=== PATIENT | female | born 1995 | race Caucasian/White ===

== ENCOUNTER → 2016-11-29 | Outpatient (CLI) | payer OTHER ==
[~2016-11-29] MED LIST: DEXTSYP41 PO; MTR600X PO; OXYC5TAB PO; PRENTAB26 PO
== END | disposition home or self-care (01) ==
LOC: C.PAPS 10:42
PROVIDERS: ATTEND Obstetrics & Gynecology
DX: Z12.4 Encounter for screening for malignant neoplasm of cervix (principal)

== ENCOUNTER → 2017-09-22 | Outpatient (CLI) | payer OTHER ==
[~2017-09-22] MED LIST changes: +MELATAB2 PO
== END | disposition home or self-care (01) ==
LOC: C.LAB1850 16:22
PROVIDERS: ATTEND Obstetrics & Gynecology
DX: Z32.00 Encounter for pregnancy test, result unknown (principal)

== ENCOUNTER 2017-10-01 17:37 | Emergency (ER) | payer OTHER ==
[~2017-10-01] VITALS: Ht 167.6 cm; Wt 60.3 kg
[~2017-10-01 17:37] MED LIST changes: -MELATAB2 PO
[2017-10-01 17:43] VITALS: TEMP 36.7; Ht 167.6 cm; Wt 60.3 kg
[2017-10-01] MEDS ORDERED: DiphenhydrAMINE HCL 50 MG/ML VIAL IV STA (18:00)
[2017-10-01] MEDS ORDERED: SODIUM CHLORIDE 0.9% 500ML 500 ML IV STA (18:00)
[2017-10-01] MEDS ORDERED: ACETAMINOPHEN 325 MG TAB PO STA (18:00)
[2017-10-01] MEDS ORDERED: MELATAB2 PO (18:13)
--- NOTE | 2017-10-01 18:35 | EMERGENCY ROOM VISIT NOTE ---
History Report prepared by Julissaibarin: Kamla Farfan Under the Supervision of: Dr. eSven Contreras M.D. First contact with patient: 17:47 Chief Complaint: HEADACHE Stated Complaint: SWEATY,HEADACHE,RINGING EARS,PORENIAL MISCARRIAGE History of Present Illness The patient is a 22 year old white female with history of a breech who presents to the ED with a cc of a constant headache beginning this evening. She notes the headache is around her forehead, and is improving since its onset. She reports she is 4 or 5 weeks , and her LNMP was August 05. The patient states she noticed a "long string of pink-sonya mucous" in the toilet after using the restroom this evening, and is afraid she may be having a miscarriage. She notes she looked up what this could mean and began to experience dizziness, racing pulse, sweating, and ringing ears. She denies vaginal bleeding, recent falls, or a history of migraines or panic attacks. The patient notes her first OB appointment is scheduled for 3 days from today. Source of History: patient Onset: this evening Position: head Quality: other (headache) Timing: constant, other (improving) Associated Symptoms: + diaphoresis Note: associated symptoms: dizziness, racing pulse, ringing ears Review of Systems See HPI for pertinent positives and negatives. A total of ten systems were reviewed and were otherwise negative. Past Medical & Surgical Medical Problems: (1) Breech (2) Breech presentation Family History No pertinent family history stated. Social History Smoking Status: Never Smoker Housing Status: lives with family Current/Historical Medications Scheduled Multivit/Min/Iron/Fol Ac/Pren ( Vitamin), 1 TAB PO QPM Scheduled PRN Melatonin (Melatonin Maximum Strengt), 1 TAB PO HS PRN for Sleep Allergies Coded Allergies: Sulfa Antibiotics (Verified Allergy, Unknown, RASH, 10/01/17) Physical Exam Vital Signs Date Time Temp Pulse Resp B/P (MAP) Pulse Ox O2 Delivery O2 Flow Rate FiO2 10/01/17 19:43 10/01/17 19:15 67 16 94/44 100 Room Air 10/01/17 17:43 36.7 59 20 107/70 100 Room Air Physical Exam GENERAL: Awake, alert, well-appearing, NAD HENT: Normocephalic, atraumatic. EYES: Normal conjunctiva. Sclera non-icteric. PERRL. No anisocoria. NECK: Supple. No nuchal rigidity. FROM. RESPIRATORY: CTAB, no rhonchi, wheezing, crackles CARDIAC: RRR, no MRG ABDOMEN: Soft, NTND, BS+ MSK: No chest wall TTP, no LE edema NEURO: CN 2-12 intact, 5/5 upper and lower extremity strength, no dysmetria, no drift, good finger to nose, no sensory deficits. Finger count grossly normal. SKIN: No rash or jaundice noted. Medical Decision & Procedures Laboratory Results 10/01/17 18:26 Red Blood Count 4.15, Mean Corpuscular Volume 93.3, Mean Corpuscular Hemoglobin 31.3, Mean Corpuscular Hemoglobin Concent 33.6, Mean Platelet Volume 9.8, Neutrophils (%) (Auto) 55.7, Lymphocytes (%) (Auto) 38.7, Monocytes (%) (Auto) 4.1, Eosinophils (%) (Auto) 1.1, Basophils (%) (Auto) 0.3, Neutrophils # (Auto) 4.18, Lymphocytes # (Auto) 2.90, Monocytes # (Auto) 0.31, Eosinophils # (Auto) 0.08, Basophils # (Auto) 0.02 10/01/17 18:26 Test 10/01/17 18:26 White Blood Count 7.50 K/uL (4.8-10.8) Red Blood Count 4.15 M/uL (4.2-5.4) Hemoglobin 13.0 g/dL (12.0-16.0) Hematocrit 38.7 % (37-47) Mean Corpuscular Volume 93.3 fL (80-100) Mean Corpuscular Hemoglobin 31.3 pg (25-34) Mean Corpuscular Hemoglobin Concent 33.6 g/dl (32-36) Platelet Count 183 K/uL (130-400) Mean Platelet Volume 9.8 fL (7.4-10.4) Neutrophils (%) (Auto) 55.7 % Lymphocytes (%) (Auto) 38.7 % Monocytes (%) (Auto) 4.1 % Eosinophils (%) (Auto) 1.1 % Basophils (%) (Auto) 0.3 % Neutrophils # (Auto) 4.18 K/uL (1.4-6.5) Lymphocytes # (Auto) 2.90 K/uL (1.2-3.4) Monocytes # (Auto) 0.31 K/uL (0.11-0.59) Eosinophils # (Auto) 0.08 K/uL (0-0.5) Basophils # (Auto) 0.02 K/uL (0-0.2) RDW Standard Deviation 41.8 fL (36.4-46.3) RDW Coefficient of Variation 12.4 % (11.5-14.5) Immature Granulocyte % (Auto) 0.1 % Immature Granulocyte # (Auto) 0.01 K/uL (0.00-0.02) Urine Color YELLOW Urine Appearance CLEAR (CLEAR) Urine pH 6.5 (4.5-7.5) Urine Specific [place] 1.026 (1.000-1.030) Urine Protein NEG (NEG) Urine Glucose (UA) NEG (NEG) Urine Ketones NEG (NEG) Urine Occult Blood NEG (NEG) Urine Nitrite NEG (NEG) Urine Bilirubin NEG (NEG) Urine Urobilinogen NEG (NEG) Urine Leukocyte Esterase NEG (NEG) Anion Gap 5.0 mmol/L (3-11) Est Creatinine Clear Calc Drug Dose 100.2 ml/min Estimated GFR () 117.8 Estimated GFR (Non- 101.7 BUN/Creatinine Ratio 17.5 (10-20) Calcium Level 8.4 mg/dl (8.5-10.1) Total Bilirubin 0.2 mg/dl (0.2-1) Direct Bilirubin < 0.1 mg/dl (0-0.2) Aspartate Amino Transf (AST/SGOT) 22 U/L (15-37) Alanine Aminotransferase (ALT/SGPT) 30 U/L (12-78) Alkaline Phosphatase 59 U/L (45-117) Total Protein 7.6 gm/dl (6.4-8.2) Albumin 4.2 gm/dl (3.4-5.0) Lipase 155 U/L (73-393) Human Chorionic Gonadotropin, Quant 5507 mIU/mL Laboratory results reviewed by me Medications Administered Medications (Trade) Dose Ordered Sig/Sabrina Route Start Time Stop Time Status Last Admin Dose Admin Sodium Chloride 500 ml @ 999 mls/hr Q31M STAT IV 10/01/17 18:00 10/01/17 18:30 DC 10/01/17 18:00 999 MLS/HR Diphenhydramine HCl (Benadryl Inj) 25 mg NOW STAT IV 10/01/17 18:00 10/01/17 18:01 DC 10/01/17 18:31 25 MG Acetaminophen (Tylenol Tab) 650 mg NOW STAT PO 10/01/17 18:00 10/01/17 18:01 DC 10/01/17 18:32 650 MG ED Course 1751: The patient was evaluated in room B3. A complete history and physical exam was performed. Medical Decision Nursing notes reviewed. Ancillary studies and prior records reviewed. The patient is a 22 year old white female with history of a breech who presents to the ED with a cc of a constant headache beginning this evening. Etiologies such as migraine headache, meningitis, sinusitis, CO exposure, ICH, SAH, infection, tumor, headache, sinus thrombosis, arterial dissection, as well as others were entertained. Patient was seen and evaluated the bedside. Patient did complain of noticing some mucousy discharge in suddenly became almost panic that she became lightheaded and nauseated and did develop a headache. Patient otherwise has a nonfocal neurologic exam and is afebrile. This is the patient's second . Patient's last menstrual period was August 05. The patient has not had any other blood work or ultrasounds completed. The patient denies any vaginal bleeding at this time. Patient has had some nausea but again no abdominal pain or cramping. Patient does not believe there is been any passage of tissue but she is unsure if she noticed a mucousy discharge. Patient did have blood work completed and was treated for headache. Patient had very reassuring blood work. The patient did have improvement of her headache. The patient's beta hCG was 5000. I do not believe that she requires a pelvic exam at this time she denies any vaginal bleeding. The patient was told to call her [facility] if she has any worsening or persistent symptoms and can also return to the emergency department. Patient was told what her beta-hCG was. Patient is supposed to get blood work on Tuesday. Patient was told that she should notice an increase in this beta-hCG and if it is either fairly close or plateaued or decreased she needs to return or call her [facility]. Patient was given strict follow-up, discharge, and return precautions. All questions were answered. Patient was deemed suitable for outpatient follow-up at this time. Patient agreed with the plan of care and was safely discharged home. Medication Reconcilliation Current Medication List: was personally reviewed by me Blood Pressure Screening Patient's blood pressure: Normal blood pressure Blood pressure disposition: Did not require urgent referral Impression Primary Impression: Headache Additional Impressions: Hypocalcemia Scribe Attestation The scribe's documentation has been prepared under my direction and personally reviewed by me in its entirety. I confirm that the note above accurately reflects all work, treatment, procedures, and medical decision making performed by me. Departure Information Dispostion Home / Self-Care Referrals Joycelyn Fleming M.D. (PCP) Forms HOME CARE DOCUMENTATION FORM, IMPORTANT VISIT INFORMATION Patient Instructions Headache Pain, [facility] Additional Instructions Please return to the emergency department if you have worsening or recurrent symptoms not amenable to at-home treatment. Please call for a follow-up appointment with her primary care physician. Please take your medications as prescribed. If you have other concerns and/or complaints please feel free to also call your primary care physician's office or return the ED for further evaluation, management, and treatment. You may take tylenol 650 mg every 6 hours as needed for pain/fever unless told by your physician to not take it or have liver problems. Take your medications as prescribed. Please keep your follow-up appointment with your [facility] as well as her lab work. Your beta hCG quantitative level was just greater than 5000. You have been examined and treated today on an emergency basis only. This is not a substitute for, or an effort to provide, complete comprehensive medical care. It is impossible to recognize and treat all injuries or illnesses in a single emergency department visit. It is therefore important that you follow up closely with [facility], your PCP, and/or your specialist(s). Call as soon as possible for an appointment. Thank you for your time and consideration. I look forward to speaking with you again soon. Please don't hesitate to call us if you have any questions. Problem Qualifiers Primary Impression: Headache Headache type: unspecified Headache chronicity pattern: acute headache Intractability: not intractable Qualified Codes: R51 - Headache Additional Impressions: Weeks of gestation: 8 weeks Qualified Codes: Z3A.08 - 8 weeks gestation of
[2017-10-01 18:39] LABS: BASO % 0.3 %; BASO ABS # 0.02 K/uL (0-0.2); EOS % 1.1 %; EOS ABS # 0.08 K/uL (0-0.5); HEMATOCRIT 38.7 % (37-47); IG# 0.01 K/uL (0.00-0.02); LYMPH % 38.7 %; MEAN CELL VOLUME 93.3 fL (80-100); MEAN CORPUSCULAR HEMOGLOBIN 31.3 pg (25-34); MEAN CORPUSCULAR HGB CONC 33.6 g/dl (32-36); MEAN PLATELET VOLUME 9.8 fL (7.4-10.4); MONO % 4.1 %; MONO ABS # 0.31 K/uL (0.11-0.59); NEUT % 55.7 %; NEUT ABS # 4.18 K/uL (1.4-6.5); PLATELET COUNT 183 K/uL (130-400); RED CELL DISTRIBUTION WIDTH CV 12.4 % (11.5-14.5); RED CELL DISTRIBUTION WIDTH SD 41.8 fL (36.4-46.3)
[2017-10-01 19:02] LABS: ALBUMIN 4.2 gm/dl (3.4-5.0); ALKALINE PHOSPHATASE 59 U/L (45-117); ALT/SGPT 30 U/L (12-78); AST/SGOT 22 U/L (15-37); BLOOD UREA NITROGEN 14 mg/dl (7-18); CALCIUM 8.4 mg/dl (8.5-10.1); CARBON DIOXIDE 26 mmol/L (21-32); CREATININE 0.81 mg/dl (0.60-1.20); GLUCOSE 109 mg/dl (70-99); LIPASE 155 U/L (73-393); POTASSIUM 3.5 mmol/L (3.5-5.1); SODIUM 137 mmol/L (136-145); TOTAL PROTEIN 7.6 gm/dl (6.4-8.2)
[2017-10-01 19:15] VITALS: BP 94/44; PULSE 67; O2SAT 100
== END 2017-10-01 19:44 | disposition home or self-care (01) ==
LOC: C.EDB 17:39
DX: O99.89 Other specified diseases and conditions complicating pregnancy, childbirth and the puerperium (principal); Z3A.01 Less than 8 weeks gestation of pregnancy; R51 Headache; E83.51 Hypocalcemia; Z88.2 Allergy status to sulfonamides

== ENCOUNTER → 2017-10-03 | Outpatient (CLI) | payer OTHER ==
[~2017-10-03] MED LIST changes: -DEXTSYP41 PO; +MELATAB2 PO; -MTR600X PO; -OXYC5TAB PO
== END | disposition home or self-care (01) ==
LOC: C.LAB1850 09:14
PROVIDERS: ATTEND Obstetrics & Gynecology
DX: Z34.91 Encounter for supervision of normal pregnancy, unspecified, first trimester (principal); Z3A.00 Weeks of gestation of pregnancy not specified

== ENCOUNTER → 2017-10-19 | Outpatient (CLI) | payer OTHER | END | disposition home or self-care (01) | LOC: C.LABSPEC 16:36 | PROVIDERS: ATTEND Obstetrics & Gynecology | DX: Z34.81 Encounter for supervision of other normal pregnancy, first trimester (principal) ==

== ENCOUNTER → 2017-10-24 | Outpatient (CLI) | payer OTHER ==
[2017-10-24 15:58] LABS: BASO % 0.2 %; BASO ABS # 0.02 K/uL (0-0.2); EOS % 1.5 %; EOS ABS # 0.12 K/uL (0-0.5); HEMATOCRIT 38.4 % (37-47); IG# 0.02 K/uL (0.00-0.02); LYMPH % 28.3 %; LYMPH ABS # 2.31 K/uL (1.2-3.4); MEAN CORPUSCULAR HEMOGLOBIN 31.5 pg (25-34); MEAN CORPUSCULAR HGB CONC 33.9 g/dl (32-36); MEAN PLATELET VOLUME 9.8 fL (7.4-10.4); MONO % 4.2 %; MONO ABS # 0.34 K/uL (0.11-0.59); NEUT % 65.6 %; NEUT ABS # 5.35 K/uL (1.4-6.5); PLATELET COUNT 188 K/uL (130-400); RED CELL DISTRIBUTION WIDTH CV 12.2 % (11.5-14.5); RED CELL DISTRIBUTION WIDTH SD 41.8 fL (36.4-46.3); WHITE BLOOD COUNT 8.16 K/uL (4.8-10.8)
== END | disposition home or self-care (01) ==
LOC: C.LAB1850 15:05
PROVIDERS: ATTEND Obstetrics & Gynecology
DX: Z34.81 Encounter for supervision of other normal pregnancy, first trimester (principal)

== ENCOUNTER → 2017-10-27 | Outpatient (CLI) | payer OTHER | END | disposition home or self-care (01) | LOC: C.LABSPEC 15:54 | PROVIDERS: ATTEND Obstetrics & Gynecology | DX: A74.9 Chlamydial infection, unspecified (principal) ==